=== PATIENT | male | born 1960 | race Caucasian/White ===

== ENCOUNTER 2016-07-29 20:19 | Observation (INO) | payer OTHER ==
--- NOTE | ~2016-07-29 | DS ---
Discharge Summary [facility] [address] [place]. [address] NAME: JACK ACEVES : 60 STATUS : DIS Wes PAT#: [id number] AGE: 55 ADM/REG DATE : 07/29/16 MR#: [id number] REPORT SERV DATE: 07/31/16 DICTATED BY: DELONTE ACEVEDO DATE: 07/30/16 REPORT STATUS : Draft TRANSCRIBED BY: MODL DATE: 07/30/16 ADMISSION DATE: 07/29/2016 DISCHARGE DATE: 07/30/2016 DISCHARGE DIAGNOSES: 1. Syncope. 2. Positive troponin and demand ischemia. 3. Dehydration and acute kidney injury, resolving, creatinine falling to 1.43. 4. Leukocytosis, improved, most recent white blood cells 7.8. 5. History of hyperlipidemia. DISCHARGE MEDICINES: Simply aspirin 81 mg daily. HISTORY OF PRESENT ILLNESS: This is a pleasant 55-year-old white male who had a syncopal episode at a restaurant and probable heat exhaustion. Please see the initial H and P of Dr. James Barbour. This patient is admitted to the Hospitalist Service for further evaluation and treatment. He was given aggressive IV hydration. Lab work was ordered and followed, in particular troponin trending. CONSULTANTS DURING THIS ADMISSION: Include manager technical sales, Dr. Maldonado Sharpe. HOSPITAL COURSE: The patient was seen by myself the following day on 07/30/2016. The patient was resting in bed, feeling okay, with no new complaints, no chest pain, no shortness of breath. His kidney function had improved with fluid bolus. His white blood cells had improved. His troponin trend went from 0.06 to 0.12 to 0.11. Discussed the case extensively with manager technical sales, Dr. Maldonado Sharpe, who saw the patient in consultation, who recommended outpatient followup, outpatient stress testing, and initiation of aspirin 81 mg daily. So, the patient was felt safe for discharge home. I have instructed him to establish a primary care physician as soon as possible to further assess cholesterol and elevated blood pressure and for general followup care. Dr. Maldonado Sharpe's office to call the patient to set up outpatient followup and outpatient stress testing. The patient is in agreement with this plan going forward. I have updated the patient and his at bedside. Questions were answered in full. He has been instructed to follow back up immediately the emergency room, call the ambulance if he has any further chest pain, syncope, or significant shortness of breath. CSC/MODL Delonte Acevedo NP / [id number] CC: Discharge Summary [address] [place]. [address] NAME: JACK ACEVES : 60 STATUS : DIS Wes PAT#: [id number] AGE: 55 ADM/REG DATE : 07/29/16 MR#: [id number] REPORT SERV DATE: 07/31/16 DICTATED BY: DELONTE ACEVEDO [facility] DATE: 07/30/16 REPORT STATUS : Draft TRANSCRIBED BY: SANDRA DATE: 07/30/16 Xi Chinchilla M.D.
--- NOTE | ~2016-07-29 | CN ---
Consultation Report [facility] [address] [place]. [address] NAME: JACK LEDEZMA : 60 STATUS : ADM Wes PAT#: [id number] AGE: 55 ADM/REG DATE : 07/29/16 MR#: [id number] REPORT SERV DATE: 07/30/16 DICTATED BY: CINDI MICHAEL DATE: 07/30/16 REPORT STATUS : Draft TRANSCRIBED BY: MODL DATE: 07/30/16 CARDIOLOGY CONSULTATION DATE OF CONSULTATION: 07/30/2016 REASON FOR CONSULTATION: Regarding dizziness, lightheadedness, and mild troponin increase. HISTORY OF PRESENT ILLNESS: Mr. Ledezma is a very pleasant 55-year-old gentleman, without significant past medical history. He had been working very vigorously in his yard for several hours on hot Sunday afternoon and by late that afternoon he had noted some dizziness and lightheadedness especially upon standing. He was brought into the emergency room. He had evidence for dehydration with some prerenal azotemia and the elevation in the CPK levels. His troponin was 0.06 and it increased to 0.11 on the second draw. He denied any chest pain or chest discomfort at any point. His EKG was unremarkable, did not suggest evidence for ischemia or infarction. His CAD risk factors are notable only for a positive family history, which is father had premature coronary disease in his late 50s. He denied any history of any chest pain, or chest discomfort, or any congestive heart failure symptoms. The patient performs vigorous yard work as on the day of admission and also works out at least three times a week doing vigorous exercises without any problems. PAST MEDICAL HISTORY: Essentially unremarkable. The patient has not seen a primary care physician in some time. MEDICATIONS: He does not take any home medications. FAMILY HISTORY: His family history is notable for his father who had premature coronary disease in his mid to late 50s. SOCIAL HISTORY: Negative for tobacco or alcohol. He is . Denies any illicit drug use. REVIEW OF SYSTEMS: As noted above. All other systems reviewed and negative. PHYSICAL EXAMINATION: GENERAL: He is in no distress. Denies any chest discomfort. Denies any further dizziness or lightheadedness, which had completely resolved after IV hydration of 4 L. VITAL SIGNS: His blood pressure is 130/70, his pulse is 72 and regular, and respirations 16. HEENT: No icterus. Good dentition. NECK: Supple. No masses or thyromegaly LUNGS: Breathing comfortably. No rales or wheezes. COR: Normal S1, S2. No S3 or S4. No murmurs, clicks, rubs. No JVD ABD: Soft, nondistended, nontender, no hepatosplenomegaly. EXT: No clubbing, cyanosis or edema. Peripheral pulses 2+ or equal bilaterally. Consultation Report [address] [place]. [address] NAME: JACK LEDEZMA : 60 STATUS : ADM Wes PAT#: [id number] AGE: 55 ADM/REG DATE : 07/29/16 MR#: [id number] REPORT SERV DATE: 07/30/16 DICTATED BY: CINDI MICHAEL DATE: 07/30/16 REPORT STATUS : Draft TRANSCRIBED BY: SANDRA DATE: 07/30/16 SKIN: Warm and dry. No visible lesions. MS: Chest wall without deformity, no obvious clavicular fractures. NEURO/PSYCH: Oriented X3. No anxiety or depression. DIAGNOSTIC DATA: EKG this morning showed sinus rhythm, normal GA, QRS, and QT intervals. No evidence for ischemia, infarction, or chamber hypertrophy. LABORATORY DATA: On admission, his laboratory values showed a creatinine of 1.67 and is coming down, it is now 1.4. Electrolytes were within normal limits. Troponin was 0.06, increased to 0.11 on second draw elected, values otherwise unremarkable. IMPRESSION: 1. Probable heat exhaustion, dehydration, with symptoms of lightheadedness that resolved with IV hydration. Troponin abnormalities likely consistent with demand ischemia secondary to his dehydration. He is having no chest pain and no EKG changes. Nothing to suggest ischemia. He does however have a family history of early coronary disease in his father and so he should be assessed further with an outpatient stress thallium examination. I would recommend discharge to home. 2. 81 mg daily aspirin at this point in time. 3. Follow up for an outpatient stress myocardial perfusion imaging study. We will schedule for followup office visit with me after this is performed. I have advised the patient that if he should have any chest discomfort, further dizziness, or lightheadedness, or other symptoms suggestive of possible coronary artery disease or unstable angina, he should follow back up with the emergency room. If it appears to be an acute symptoms then he should call 911 and be taken by emergency transport. BALTAZAR/SANDRA Cindi Michael M.D. / [id number] CC: Xi Chinchilla M.D.
--- NOTE | ~2016-07-29 | HP ---
History And Physical [place] [id number] [facility]. [address] NAME: JACK ACEVES : 60 STATUS : ADM Wes PAT#: [id number] AGE: 55 ADM/REG DATE : 07/29/16 MR#: [id number] REPORT SERV DATE: 07/30/16 DICTATED BY: JENNIFER ROSEN DATE: 07/29/16 REPORT STATUS : Draft TRANSCRIBED BY: MODL DATE: 07/29/16 DATE OF ADMISSION: 07/29/2016 CHIEF COMPLAINT: A 55-year-old male presenting with lightheadedness and minimal syncopal episode with probable heat exhaustion. HISTORY OF PRESENT ILLNESS: The patient's history was obtained through careful interview with patient and , coupled with review of [facility] medical records. The patient was in usual state of health when he went out to do some work in the yard. Even though it is only 07/29/2016, the weather in our region has been unseasonably warm and was into the 80s today with quite a bit of humidity. It is in this context, the patient had only been drinking coffee and tea in the morning, had not eaten some full meals, and spent an entire day out working with mulch cutting a tree and doing other yard work. Then in the evening, he went out to a restaurant with his and first noticed some severe cramping discomfort in his legs, particularly in his thighs. He tried to relieve this pain by stretching out his legs. It was about a seven to eight out of 10 severity that was actually quite alarming to his . Then the patient became overtly diaphoretic "pouring sweat" apparently and then according to "lost all color" and then turned a shade of chartreuse. It was after this the patient felt lightheaded and he had to lay his head on the table and just briefly lost consciousness for maybe only a few seconds. They tried to put a wet towel over him and he rested for a bit and ate some food and drank some water and felt better. But after the severity of this episode, it was felt that he should come to the hospital for further evaluation. Now the patient is without any symptoms. Throughout the day and even now, the patient has no chest pain, no shortness of breath, no cough, no nausea or vomiting, no fevers or chills, no diarrhea. REVIEW OF SYSTEMS: Otherwise a 14-point review of systems was obtained and was negative. PAST MEDICAL HISTORY: Nephrolithiasis. No history of heart disease or lung disease. PAST SURGICAL HISTORY: Correction of a right "lazy eye". ALLERGIES: NO KNOWN DRUG ALLERGIES. SOCIAL HISTORY: No tobacco abuse. No alcohol abuse. He is , has two children, three grandchildren. The son-in-law is Dr. Ferrari, radiation oncologist here at [facility]. The patient works in [employer]. He works out about three to four times a week without any limitations. He has two sisters, one who lives locally, one who lives in [place]. He has had exceptional amount of stress recently, his father apparently from heart disease just in 01/2016 and then his mother has undergone such grief from History And Physical [address] [address] NAME: JACK ACEVES : 60 STATUS : ADM Wes PAT#: [id number] AGE: 55 ADM/REG DATE : 07/29/16 MR#: [id number] REPORT SERV DATE: 07/30/16 DICTATED BY: JENNIFER ROSEN DATE: 07/29/16 REPORT STATUS : Draft TRANSCRIBED BY: SANDRA DATE: 07/29/16 this that she has lost 40 pounds since January and he is one of the main family members helping to look after her. She lives about 10 minutes away. FAMILY HISTORY: Grandfather with coronary artery disease. Father just in 01/2016 from a heart attack. Mother has been suffering from grief since 01/2016 from being a . She has lost 40 pounds and lives 10 minutes away. CURRENT MEDICATIONS: Denies any. PHYSICAL EXAMINATION: VITAL SIGNS: Temperature 97.3, pulse 95, blood pressure 135/74, respiratory rate 18, O2 saturation 97% on room air. GENERAL: Pleasant, cooperative male. No evidence of distress at this time. HEENT: Pupils equal, round, and reactive to light. No conjunctival pallor. No scleral icterus. Nares are patent. Oropharynx is clear of obstruction. Dry mucous membranes. NECK: Trachea midline. No thyromegaly. LYMPH: No cervical lymphadenopathy. No supraclavicular lymphadenopathy. RESPIRATORY: Clear to auscultation at bases. No wheezes, rales, or rhonchi. Normal respiratory effort. CARDIOVASCULAR: Regular rate and rhythm. No murmurs, rubs, or gallops. No extremity edema is appreciated. ABDOMEN: Soft, nontender, nondistended. Normal bowel sounds auscultated throughout. No hepatosplenomegaly. DERMATOLOGICAL: Warm and dry. EXTREMITIES: No pallor, no cyanosis. PSYCHIATRIC: Normal affect. Good mood. Alert and oriented x3. LABORATORY DATA: White blood count 12.9, hemoglobin 13, hematocrit 39, platelets 263. Sodium 140, potassium 4.0, chloride 104, bicarb 25, BUN 17, creatinine 1.67, glucose 108. Troponin 0.06. INR 1.0. Liver enzymes within normal limits. STUDIES: EKG by my own evaluation shows sinus rhythm, no major abnormalities. ASSESSMENT AND PLAN: 1. Syncope. I suspect this was from heat exhaustion. Place on IV fluids. Check telemetry, check CPK. 2. Acute kidney injury. Place on IV fluids. Follow closely. 3. Family history of coronary artery disease with slightly elevated troponin. We will follow troponin, follow EKG. The patient likely needs a followup outpatient stress test. 4. Leukocytosis. Check urinalysis, monitor for fevers. KPL/MODL Jennifer Walker History And Physical [address] [address] NAME: JACK ACEVES : 60 STATUS : ADM Wes PAT#: [id number] AGE: 55 ADM/REG DATE : 07/29/16 MR#: [id number] REPORT SERV DATE: 07/30/16 DICTATED BY: JENNIFER ROSEN DATE: 07/29/16 REPORT STATUS : Draft TRANSCRIBED BY: SANDRA DATE: 07/29/16 Meka Rosen / [id number] CC: Janie Meza M.D.
[2016-07-29 20:25] LABS: BASOPHILS 0.4 %; BASOPHILS ABSOLUTE 0.05 10/3/uL (0.0-0.16); EOSINOPHILS 1.7 %; EOSINOPHILS ABSOLUTE 0.22 10/3/uL (0.0-0.53); ER CBC TAT 0 Hrs 11 Mins; HEMOGLOBIN 13.5 g/dL (13.6-17.8); IMMATURE GRANULOCYTES 0.4 %; IMMATURE GRANULOCYTES ABSOLUTE 0.05 10/3/uL (0.0-0.11); LYMPHOCYTES 15.5 %; LYMPHOCYTES ABSOLUTE 1.99 10/3/uL (0.67-4.30); MEAN CORPUS HGB CONC 34.6 g/dL (32.0-36.0); MEAN CORPUSCULAR VOLUME 89.4 fL (80-100); MEAN PLATELET VOLUME 10.2 fL (9.2-13.0); MONOCYTES 7.8 %; MONOCYTES ABSOLUTE 1.01 10/3/uL (0.21-1.20); NEUTROPHILS 74.2 %; NEUTROPHILS ABSOLUTE 9.56 10/3/uL (2.02-8.40); PLATELET COUNT 263 10/3/uL (150-400); RBC DISTRIBUTION WIDTH 13.1 % (12.0-16.0); RED CELL COUNT 4.36 10/6/uL (4.7-6.1); WHITE BLOOD CELLS 12.9 10/3/uL (4.5-10.5)
[2016-07-29 20:26] LABS: MANUAL DIFF NO %
[2016-07-29 20:32] LABS: PARTIAL THROMBO TIME 25.3 SEC (22.5-37.2); PROTIME (NOT ORD) 13.5 SEC (12.0-14.5)
[2016-07-29 20:41] LABS: ALBUMIN 4.1 G/DL (3.5-5.0); ALKALINE PHOSPHATASE 89 U/L (45-117); SGPT(ALT) 41 U/L (5-65); TOTAL BILIRUBIN 0.6 MG/DL (0-1.2); TOTAL PROTEIN 7.9 G/DL (6.0-8.5)
[2016-07-29 20:43] LABS: BUN (BLOOD UREA NITROGEN) 17 MG/DL (6-23); CALCIUM, SERUM 8.8 MG/DL (8.5-10.4); CHLORIDE, SERUM 104 MMOL/L (96-112); CO2 (CARBON DIOXIDE) 25 MMOL/L (24-34); CREATININE 1.67 MG/DL (0.70-1.30); DIRECT BILIRUBIN < 0.1 MG/DL (0.0-0.4); GFR AFRICAN AMERICAN 53 ML/MIN (>=60); GFR NON AFRICAN AMERICAN 45 ML/MIN (>=60); GLUCOSE, SERUM 108 MG/DL (60-99); INDIRECT BILIRUBIN(NOT ORDER) 0.5 MG/DL (0.1-0.9); SGOT(AST) 25 U/L (5-40); SODIUM, SERUM 140 MMOL/L (135-148)
[2016-07-29 20:44] LABS: CHEST PAIN PROFILE TAT 0 Hrs 21 Mins; TROPONIN I 0.06 NG/ML (<0.05)
[2016-07-29] MEDS ORDERED: *DENIES (22:00)
[2016-07-30 05:48] LABS: BASOPHILS 0.8 %; BASOPHILS ABSOLUTE 0.06 10/3/uL (0.0-0.16); EOSINOPHILS 3.3 %; EOSINOPHILS ABSOLUTE 0.26 10/3/uL (0.0-0.53); HEMATOCRIT 38.7 % (40.0-51.0); HEMOGLOBIN 12.9 g/dL (13.6-17.8); IMMATURE GRANULOCYTES 0.3 %; IMMATURE GRANULOCYTES ABSOLUTE 0.02 10/3/uL (0.0-0.11); LYMPHOCYTES 30.9 %; LYMPHOCYTES ABSOLUTE 2.41 10/3/uL (0.67-4.30); MEAN CORPUS HGB CONC 33.3 g/dL (32.0-36.0); MEAN CORPUSCULAR HEMOGLOB 30.1 pg (26.0-34.0); MEAN CORPUSCULAR VOLUME 90.4 fL (80-100); MEAN PLATELET VOLUME 10.1 fL (9.2-13.0); MONOCYTES 7.9 %; MONOCYTES ABSOLUTE 0.62 10/3/uL (0.21-1.20); NEUTROPHILS 56.8 %; NEUTROPHILS ABSOLUTE 4.44 10/3/uL (2.02-8.40); PLATELET COUNT 216 10/3/uL (150-400); RBC DISTRIBUTION WIDTH 13.5 % (12.0-16.0); RED CELL COUNT 4.28 10/6/uL (4.7-6.1); WHITE BLOOD CELLS 7.8 10/3/uL (4.5-10.5)
[2016-07-30 05:53] LABS: MANUAL DIFF NO %
[2016-07-30 06:07] LABS: BUN (BLOOD UREA NITROGEN) 14 MG/DL (6-23); CALCIUM, SERUM 8.3 MG/DL (8.5-10.4); CHLORIDE, SERUM 113 MMOL/L (96-112); CO2 (CARBON DIOXIDE) 22 MMOL/L (24-34); CPK 260 U/L (0-200); CREATININE 1.43 MG/DL (0.70-1.30); GFR AFRICAN AMERICAN 63 ML/MIN (>=60); GFR NON AFRICAN AMERICAN 55 ML/MIN (>=60); GLUCOSE, SERUM 109 MG/DL (60-99); POTASSIUM, SERUM 4.1 MMOL/L (3.5-5.3); SODIUM, SERUM 146 MMOL/L (135-148); ULTRASENSITIVE TSH 0.713 MCIU/ML (0.358-3.740)
[2016-07-30 06:08] LABS: TROPONIN I 0.12 NG/ML (<0.05)
[2016-07-30 09:37] LABS: ASCORBIC ACID (UR NOT ORDER) NEG (NEG); BILIRUBIN, URINE NEGATIVE (NEG); KETONE, URINE NEGATIVE (NEG); LEUKOCYTE ESTERASE(NOT OR NEG (NEG); WBC (NOT ORDERED) (RFLEX) < 1 (0-5)
[2016-07-30] MEDS ORDERED: ASAB PO (16:38)
== END 2016-07-30 17:52 | disposition home or self-care (01) ==
LOC: ER 20:19 → CDU1 21:30 → CDU2 22:39
PROVIDERS: Emergency Medicine; Internal Medicine
DX: R55 Syncope and collapse (principal); E86.0 Dehydration; N17.9 Acute kidney failure, unspecified; D72.829 Elevated white blood cell count, unspecified; E78.5 Hyperlipidemia, unspecified; E78.00 Pure hypercholesterolemia, unspecified; Z87.442 Personal history of urinary calculi; Z98.890 Other specified postprocedural states; Z82.49 Family history of ischemic heart disease and other diseases of the circulatory system
CPT/HCPCS: 80048; 80076; 81001; 82550; 83735; 84443; 84484; 85025; 85610; 85730; 93005; 99285; A9270-GY; G0378